=== PATIENT | female | born 1990 | race Caucasian/White ===

== ENCOUNTER → 2018-10-26 | Day surgery (SDC) | payer OTHER ==
[2018-10-21 13:07] VITALS: BMI 21.7
[~2018-10-26] MED LIST: SODIUM CHLORIDE 0.9% 1,000 ML IV ONE; SODIUM CHLORIDE 0.9% 1,000 ML IV SCH
[2018-10-26 12:10] VITALS: TEMP 98
[2018-10-26 14:35] VITALS: BP 122/67; PULSE 65; RESP 16
--- NOTE | 2018-10-26 16:58 | P.PCN ---
Preoperative Diagnosis: Diagnosis History of syncope Twelve-lead ECG shows sinus rhythm normal CA narrow QRS with an incomplete right bundle branch block pattern normal ST segments Tilt table test per protocol Baseline blood pressure 130/70 mmHg pulse rate in the 50s sinus There is no change in her blood pressure with upright position on the tilt table test She remained asymptomatic There was a minimal increase in heart rate with upright position Upon assuming supine position once again at the end of the procedure heart rate came down to 60 beats a minute Impression Normal heart rate and blood pressure response to upright tilting Patient remained asymptomatic through the procedure No evidence for dysautonomia No evidence for neurocardiogenic syncope
--- NOTE | 2018-10-26 17:02 | P.PRLE ---
RE: Diane Osborne Dear Deepak Your patient Mrs. osborne underwent tilt table testing per protocol Diagnosis History of syncope Twelve-lead ECG shows sinus rhythm normal MI narrow QRS with an incomplete right bundle branch block pattern normal ST segments Tilt table test per protocol Baseline blood pressure 130/70 mmHg pulse rate in the 50s sinus There is no change in her blood pressure with upright position on the tilt table test She remained asymptomatic There was a minimal increase in heart rate with upright position Upon assuming supine position once again at the end of the procedure heart rate came down to 60 beats a minute Impression Normal heart rate and blood pressure response to upright tilting Patient remained asymptomatic through the procedure No evidence for dysautonomia No evidence for neurocardiogenic syncope Thank you for entrusting me with the care of the patient Warm regards Sincerely Miah Hobbs
== END ==
LOC: CATHEP 11:31
PROVIDERS: ATTEND Internal Medicine Clinical Cardiac Electrophysiology
DX: R55 Syncope and collapse (principal); I45.19 Other right bundle-branch block
CPT/HCPCS: 81025; 93660